=== PATIENT | female | born 1945 | race Caucasian/White ===

== ENCOUNTER 2022-01-20 11:45 | Outpatient (CLI) | payer MEDICARE, OTHER ==
[2022-01-20 15:07] LABS: BASOPHILS # (AUTO) 0.1 10^3/uL (0.0-0.1); BASOPHILS % (AUTO) 0.8 %; EOSINOPHILS # (AUTO) 0.3 10^3/uL (0.0-0.7); HCT - HEMATOCRIT 40.5 % (37.0-47.0); HGB - HEMOGLOBIN 13.6 g/dL (12.0-16.0); LYMPHOCYTES # (AUTO) 1.9 10^3/uL (1.5-3.5); LYMPHOCYTES % (AUTO) 30.8 %; MEAN CORPUSCULAR HEMOGLOBIN 30.4 pg (27.0-31.0); MEAN CORPUSCULAR HGB CONC 33.6 g/dL (32.0-36.0); MEAN CORPUSCULAR VOLUME 90.4 fL (81.0-99.0); MEAN PLATELET VOLUME 10.5 fL (7.9-10.8); MONOCYTES # (AUTO) 0.5 10^3/uL (0.0-1.0); MONOCYTES % (AUTO) 8.6 %; NEUTROPHILS # (AUTO) 3.5 10^3/uL (1.5-6.6); NEUTROPHILS % (AUTO) 55.5 %; PLT - PLATELET COUNT 253 10^3/uL (130-450); RED BLOOD COUNT 4.48 10^6/uL (4.20-5.40); WHITE BLOOD COUNT 6.3 x10^3/uL (4.8-10.8)
[2022-01-20 15:24] LABS: ALBUMIN 4.1 g/dL (3.2-5.5); ALBUMIN/GLOBULIN RATIO 1.3 (1.0-2.2); ALKALINE PHOSPHATASE 55 IU/L (42-121); ALT ALANINE AMINOTRANSFERASE 26 IU/L (10-60); AST ASPARTATE AMINOTRANSFERASE 28 IU/L (10-42); BUN - BLOOD UREA NITROGEN 16 mg/dL (6-20); CALCIUM 9.1 mg/dL (8.5-10.3); CARBON DIOXIDE - CO2 26 mmol/L (21-32); CHLORIDE 96 mmol/L (101-111); CHOL/HDL RATIO 2.7 (<4.4); CHOLESTEROL 192 mg/dL; CREATININE 0.6 mg/dL (0.4-1.0); GFR - MDRD 97 (>89); GLUCOSE 110 mg/dL (70-100); HDL CHOLESTEROL 70 mg/dL; LDL CHOLESTEROL,CALCULATED 103 mg/dL; LDL/HDL RATIO 1.5 (<4.4); POTASSIUM 3.4 mmol/L (3.5-5.0); SODIUM 131 mmol/L (135-145); TOTAL PROTEIN 7.3 g/dL (6.7-8.2); TRIGLYCERIDES 93 mg/dL; VLDL CHOLESTEROL 19 mg/dL
[2022-01-20 21:15] LABS: ESTIMATED AVERAGE GLUCOSE 111 mg/dL (70-100); HEMOGLOBIN A1c% 5.5 % (4.27-6.07)
== END 2022-01-20 11:46 | disposition home or self-care (01) ==
LOC: LAB.S 11:45
PROVIDERS: ATTEND Internal Medicine
DX: Z00.00 Encounter for general adult medical examination without abnormal findings (principal); E03.9 Hypothyroidism, unspecified; I10 Essential (primary) hypertension; R73.03 Prediabetes
CPT/HCPCS: 36415; 80053; 80061; 83036; 83721; 84443; 85025

== ENCOUNTER 2022-06-17 21:48 | Emergency (ER) | payer MEDICARE, OTHER ==
[2022-06-17 21:58] VITALS: BP 112/69
--- NOTE | 2022-06-17 22:39 | XRAY Report ---
PROCEDURE: Shoulder 3 View RT INDICATIONS: GLF TECHNIQUE: 4 views of the shoulder were acquired. COMPARISON: None. FINDINGS: Bones: No fractures or dislocations. No suspicious bony lesions. Visualized ribs appear intact. Soft tissues: No suspicious soft tissue calcifications. IMPRESSION: Mild degenerative change at the AC joint, no trauma found. Reviewed by: Stephen Ramirez MD on 06/17/2022 10:[address] [facility] Approved by: Stephen Ramirez MD on 06/17/2022 10:[address] [facility] Station ID: [id number]
--- NOTE | 2022-06-18 02:06 | ED Physician Documentation ---
PD HPI UPPER EXT INJURY - Stated complaint Stated Complaint: GLF, SHOULDER PX - Chief complaint Chief Complaint: Ext Problem - History obtained from History obtained from: Patient - History of Present Illness Location: Right, Shoulder Type of injury: Fall Where injury occurred: Home Timing - onset: Enter time (21:00) Timing - details: Abrupt onset Improved by: Rest Worsened by: Moving, Palpating Associated symptoms: No: Weakness, Numbness Contributing factors: No: Anticoagulated Recently seen: Not recently seen - Additonal information Additional information: patient fell at home at approximately 9PM tonight. She says she thinks she lost her balance as the cause of the fall . She fell onto her right side with sudden onset right shoulder pain that has been constant and steadily worse since falling. The pain is distinctly worse with movement. She denies other injury. Denies head injury, denies LOC, denies neck pain. She is right hand dominant. HPI from patient. Review of Systems Musculoskeletal: reports: Joint pain. 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 HEENT: Tonsil/Adenoidectomy - Present Medications Home Medications: Ambulatory Orders Medication Instructions Recorded Confirmed Amlodipine Besylate 10 mg PO DAILY 04/26/16 04/27/16 Amoxicillin/Potassium Clav [Amox 1 each PO BID 04/26/16 04/27/16 Tr-K Clv 875-125 mg Tab] Fluticasone [Flonase] 1 sprays LIZZETTE DAILY 04/26/16 04/26/16 Levothyroxine [Synthroid] 75 mcg PO QDAC 04/26/16 04/27/16 Omeprazole 20 mg PO ONCE PRN 04/26/16 04/27/16 Pseudoephedrine [Sudafed] 30 mg PO ONCE PRN 04/26/16 04/26/16 Spironolact/Hydrochlorothiazid 1 each PO DAILY 04/26/16 04/27/16 [Aldactazide 25-25 Tablet] HYDROcod/ACETAM 5/325 [Wallagrass 5/325] 1 - 2 tablet PO Q6H PRN #14 tablet 06/18/22 - Allergies Allergies/Adverse Reactions: Allergies Allergy/AdvReac Type Severity Reaction Status Date / Time lisinopril Allergy Edema Verified 06/17/22 21:58 PD ED PE NORMAL - Vitals Vital signs reviewed: Yes - General General: Alert and oriented X 3, No acute distress, Well developed/nourished - Derm Derm: Normal color, Warm and dry - Neuro Neuro: Alert and oriented X 3 PD ED PE EXPANDED - Extremities Extremities: Limited ROM, Right shoulder. No: Deformity, Tenderness, Swelling, Bruising Results - Vitals Vitals: Oxygen O2 Source Room air - Rads (name of study) right shoulder xrays Radiology: Prelim report reviewed, EMP read indepedently, See rad report PD Medical Decision Making - ED course Complexity details: reviewed results, re-evaluated patient, considered differential, d/w patient ED course: no abnormality on right shoulder xrays aside from mild DJD. Discussed results of xrays with patient and that suspected diagnosis at this point is right shoulder sprain. She is placed in a sling for comfort, return precautions discussed. She is given take-home pack of vicodin and rx for vicodin is provided. Departure - Departure Disposition: 01 Home, Self Care Clinical Impression: Shoulder sprain Qualifiers: Encounter type: initial encounter Shoulder sprain type: unspecified sprain Laterality: right Qualified Code(s): S43.401A - Unspecified sprain of right shoulder joint, initial encounter Condition: Good Instructions: ED Sprain Shoulder Prescriptions: HYDROcod/ACETAM 5/325 [Wallagrass 5/325] 1 - 2 tablet PO Q6H PRN #14 tablet PRN Reason: Pain Comments: The x-ray is of your shoulder do not show any acute injury. There is mild arthritic change, but no evidence of dislocation or fracture (break). Use the sling for 2 to 3 days during the day, and you can then continue to use it if it is helping with the discomfort. A prescription for Vicodin (narcotic pain medication) has been electronically submitted to [email or web address] pharmacy in [place]. I am prescribing a short course of narcotic pain medication for you. These are potentially dangerous and addictive medications that should be used carefully. These medications may constipate you. Take an [id number] stool softener (docusate) twice daily with plenty of water while taking these medications. If you go 24 hours without a bowel movement, take ykbx-gwc-hikntic miralax, per package instructions. Do not drink or drive while taking these medications. If you received narcotic or sedating medications while in the emergency department, do not drive for 24 hours. Store this medication in a safe, secure place and out of reach of children. It is a violation of federal law to give or sell this medication to another person or to use in a manner other than prescribed. The ED will not refill narcotic prescriptions, including prescriptions lost or stolen. To dispose of unwanted medications: 1. [facility] at [address] in [place] has a medication drop box. They accept prescription medications (in pill form) Monday through Monday 9:00 a.m. to 5:00 p.m. 2. The [facility] accepts prescription medications (in pill form only) for disposal year round. Call for more information. 3. Contact the [facility] for the next [facility] sponsored prescription drug collection event. , [phone], or [phone]; Discharge Date/Time: 06/18/22 02:30
[2022-06-18] MEDS ORDERED: HYDROcod/ACET 5/325 Prepack 4 PO STA (02:10)
== END 2022-06-18 02:30 | disposition home or self-care (01) ==
LOC: ED 21:48
DX: S43.401A Unspecified sprain of right shoulder joint, initial encounter (principal); W18.30XA Fall on same level, unspecified, initial encounter; Y92.009 Unspecified place in unspecified non-institutional (private) residence as the place of occurrence of the external cause; I10 Essential (primary) hypertension; M19.011 Primary osteoarthritis, right shoulder
CPT/HCPCS: 99282; 99283

== ENCOUNTER 2022-07-27 13:59 | Outpatient (CLI) | payer MEDICARE, OTHER ==
[2022-07-27 20:04] LABS: ALBUMIN/GLOBULIN RATIO 1.3 (1.0-2.2); BILIRUBIN,TOTAL 0.8 mg/dL (0.2-1.0); CALCIUM 9.4 mg/dL (8.5-10.3); CREATININE 0.7 mg/dL (0.4-1.0); POTASSIUM 3.5 mmol/L (3.5-5.0); TOTAL PROTEIN 7.2 g/dL (6.7-8.2)
== END 2022-07-27 14:00 | disposition home or self-care (01) ==
LOC: LAB.S 13:59
PROVIDERS: ATTEND Orthopaedic Surgery
DX: Z01.818 Encounter for other preprocedural examination (principal)
CPT/HCPCS: 36415; 80053

== ENCOUNTER 2023-04-20 10:45 | Outpatient (CLI) | payer MEDICARE, OTHER ==
[2023-04-20 15:16] LABS: BASOPHILS # (AUTO) 0.1 10^3/uL (0.0-0.1); EOSINOPHILS # (AUTO) 0.2 10^3/uL (0.0-0.7); EOSINOPHILS % (AUTO) 3.8 %; HCT - HEMATOCRIT 40.4 % (37.0-47.0); HGB - HEMOGLOBIN 13.3 g/dL (12.0-16.0); LYMPHOCYTES # (AUTO) 1.7 10^3/uL (1.5-3.5); LYMPHOCYTES % (AUTO) 29.6 %; MEAN CORPUSCULAR HEMOGLOBIN 30.5 pg (27.0-31.0); MEAN CORPUSCULAR HGB CONC 32.9 g/dL (32.0-36.0); MEAN CORPUSCULAR VOLUME 92.7 fL (81.0-99.0); MEAN PLATELET VOLUME 10.4 fL (7.9-10.8); MONOCYTES # (AUTO) 0.6 10^3/uL (0.0-1.0); MONOCYTES % (AUTO) 9.6 %; NEUTROPHILS # (AUTO) 3.3 10^3/uL (1.5-6.6); NEUTROPHILS % (AUTO) 55.7 %; PLT - PLATELET COUNT 240 10^3/uL (130-450); RED BLOOD COUNT 4.36 10^6/uL (4.20-5.40); RED CELL DISTRIBUTION WIDTH 13.4 % (12.0-15.0); WHITE BLOOD COUNT 5.8 x10^3/uL (4.8-10.8)
[2023-04-20 15:44] LABS: ALBUMIN 4.2 g/dL (3.2-5.5); ALBUMIN/GLOBULIN RATIO 1.4 (1.0-2.2); ALKALINE PHOSPHATASE 62 IU/L (42-121); ALT ALANINE AMINOTRANSFERASE 16 IU/L (10-60); AST ASPARTATE AMINOTRANSFERASE 20 IU/L (10-42); BILIRUBIN,TOTAL 0.7 mg/dL (0.2-1.0); BUN - BLOOD UREA NITROGEN 15 mg/dL (6-20); CALCIUM 9.3 mg/dL (8.5-10.3); CARBON DIOXIDE - CO2 31 mmol/L (21-32); CHLORIDE 100 mmol/L (101-111); CHOL/HDL RATIO 2.7 (<4.4); CHOLESTEROL 218 mg/dL; CREATININE 0.8 mg/dL (0.6-1.3); GFR - MDRD 70 (>89); GLUCOSE 94 mg/dL (74-104); HDL CHOLESTEROL 81 mg/dL; LDL CHOLESTEROL,CALCULATED 106 mg/dL; LDL/HDL RATIO 1.3 (<4.4); POTASSIUM 3.9 mmol/L (3.5-4.5); SODIUM 137 mmol/L (135-145); TOTAL PROTEIN 7.1 g/dL (6.4-8.9); TRIGLYCERIDES 154 mg/dL (48-352); VLDL CHOLESTEROL 31 mg/dL
[2023-04-20 15:54] LABS: THYROID STIMULATING HORMONE 1.48 uIU/mL (0.34-5.60)
== END 2023-04-20 10:46 | disposition home or self-care (01) ==
LOC: LAB.S 10:45
PROVIDERS: ATTEND Physician Assistant
DX: I48.91 Unspecified atrial fibrillation (principal); E78.2 Mixed hyperlipidemia; E03.9 Hypothyroidism, unspecified
CPT/HCPCS: 36415; 80053; 80061; 83721; 84443; 85025

== ENCOUNTER 2023-07-17 13:55 | Outpatient (CLI) | payer MEDICARE, OTHER ==
[2023-07-17 20:41] LABS: THYROID STIMULATING HORMONE 1.31 uIU/mL (0.34-5.60)
== END 2023-07-17 13:56 | disposition home or self-care (01) ==
LOC: LAB.S 13:55
PROVIDERS: ATTEND Nurse Practitioner Family
DX: E03.9 Hypothyroidism, unspecified (principal)
CPT/HCPCS: 36415; 84439; 84443

== ENCOUNTER 2024-02-06 19:24 | Outpatient (CLI) | payer MEDICARE, OTHER | END 2024-02-06 23:59 | disposition critical access hospital (66) | LOC: EMS 19:24 | DX: R10.9 Unspecified abdominal pain (principal); K59.00 Constipation, unspecified | CPT/HCPCS: A0425; A0427 ==

== ENCOUNTER 2024-02-06 19:53 | Emergency (ER) | payer MEDICARE, OTHER ==
[2024-02-06 20:08] VITALS: BP 132/79; O2SAT 99
[2024-02-06] MEDS ORDERED: iohexoL-300 100 ML VIAL ONE ×2 (20:22→20:23)
--- NOTE | 2024-02-06 20:23 | ED Physician Documentation ---
History of Present Illness - Stated complaint Stated Complaint: L ABD PX - Chief complaint Chief Complaint: Abd Pain - History obtained from History obtained from: Patient - Additonal information Additional information: The patient comes to the emergency department chief complaint of no bowel movement for a week after a lumbar fusion surgery and left-sided abdominal pain. She states that she was on pain meds prior to the surgery and had to be on laxatives but was able to have bowel movements. She states she had her surgery and was in the hospital for couple of days afterward during which time they gave her MiraLAX but she never had a bowel movement. The patient has been taking hydromorphone at home. She has also been taking MiraLAX and Pepto-Bismol, she states. She has tried drinking prune juice as well but to no avail. The patient states she has not been able to give herself an enema because of the limitations with her recent back surgery. She states she had fusions of L1-2 and L4-5. The patient states she has had occasional fevers up to 100.7 orally. She denies any other symptoms of illness. No nausea or vomiting. No dysuria. She does have a history of diverticulosis but never diverticulitis. No other complaints at this time. 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 HEENT: Tonsil/Adenoidectomy - Present Medications Home Medications: Ambulatory Orders Medication Instructions Recorded Confirmed Amlodipine Besylate 10 mg PO DAILY 04/26/16 04/27/16 Amoxicillin/Potassium Clav [Amox 1 each PO BID 04/26/16 04/27/16 Tr-K Clv 875-125 mg Tab] Fluticasone [Flonase] 1 sprays LIZZETTE DAILY 04/26/16 04/26/16 Levothyroxine [Synthroid] 75 mcg PO QDAC 04/26/16 04/27/16 Omeprazole 20 mg PO ONCE PRN 04/26/16 04/27/16 Pseudoephedrine [Sudafed] 30 mg PO ONCE PRN 04/26/16 04/26/16 Spironolact/Hydrochlorothiazid 1 each PO DAILY 04/26/16 04/27/16 [Aldactazide 25-25 Tablet] HYDROcod/ACETAM 5/325 [[place] 5/325] 1 - 2 tablet PO Q6H PRN #14 tablet 06/18/22 Peg 3350/Na Sulf,Bicarb,Cl/KCl 4,000 ml PO ONCE 1 Days #1 each 02/07/24 [Golytely] levoFLOXacin [Levaquin] 500 mg PO QD #10 tablet 02/07/24 metroNIDAZOLE [Flagyl] 500 mg PO BID 10 Days #20 tablet 02/07/24 - Allergies Allergies/Adverse Reactions: Allergies Allergy/AdvReac Type Severity Reaction Status Date / Time lisinopril Allergy Edema Verified 02/06/24 19:57 - Social History Does the pt smoke?: No Smoking Status: Never smoker Does the pt drink ETOH?: No Does the pt have substance abuse?: No - Immunizations Immunizations are current?: Yes - POLST Patient has POLST: No PD ED PE NORMAL - Vitals Vital signs reviewed: Yes - General General: Alert and oriented X 3, No acute distress, Well developed/nourished, Other (Patient appears occasionally clutches her left abdomen and moans in pain but otherwise is in no distress.) - HEENT HEENT: Atraumatic, EOMI, Moist mucous membranes - Neck Neck: Supple, no meningeal sign - Cardiac Cardiac: RRR, No murmur - Respiratory Respiratory: No respiratory distress, Clear bilaterally - Abdomen Abdomen: Soft, Non distended, Other (Moderate left abdominal tenderness in upper and lower quadrants, no rebound or guarding.) - Rectal Rectal: Other (Normal external exam. Empty rectum on digital rectal exam. No mass. No blood. 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, Normal speech, Other (Alert, grossly intact.) - Psych Psych: Normal mood, Normal affect Results - Vitals Vitals: Vital Signs - 24 hr 02/06/24 19:57 Temperature 36.9 C Heart Rate 85 Respiratory 16 Rate Blood Pressure 132/79 H O2 Saturation 99 Oxygen O2 Source Room air - Labs Labs: Laboratory Tests 02/06/24 02/06/24 20:30 20:30 WBC 9.6 RBC 3.50 L Hgb 10.5 L Hct 32.1 L MCV 91.7 MCH 30.0 MCHC 32.7 RDW 12.8 Plt Count 304 MPV 9.4 Neut # (Auto) 6.8 H Lymph # (Auto) 1.5 K[place]haw # (Auto) 1.0 Eos # (Auto) 0.3 Baso # (Auto) 0.1 Absolute Nucleated RBC 0.00 Nucleated RBC % 0.0 Sodium 135 Potassium 3.5 Chloride 96 L Carbon Dioxide 29 Anion Gap 10.0 BUN 10 Creatinine 0.8 Estimated GFR (MDRD) 69 L Glucose 112 H Calcium 9.2 Total Bilirubin 0.4 AST 19 ALT 18 Alkaline Phosphatase 75 Total Protein 6.7 Albumin 3.4 Globulin 3.3 Albumin/Globulin Ratio 1.0 Lipase 18 PD Medical Decision Making - ED course Complexity details: reviewed results, re-evaluated patient, considered differential, d/w patient ED course: I suspected postoperative constipation with likely some impaction in the upper rectum and Descending colon, but unfortunately, there was no impacted stool in the rectum to disimpact. The patient did have a history of diverticuli and I did feel that with the fever she was reporting as well as left-sided abdominal pain, that this should be evaluated as part of the differential. The patient was given IV fluids and I ordered a fleets mineral oil enema for her. She was worked up with labs, urinalysis, and CT scan of the abdomen and pelvis. CT showed a large stool burden in the colon with some wall thickening, but no obvious diverticulitis. No perforation noted. There is no evidence of obstruction. The radiologist said that even though there is no obvious evidence of diverticulitis, it could not be ruled out with the wall thickening, and so I did start the patient on antibiotics. She reported the only "brown water" came out after her enema. She was continuing to have some cramps and I did give her a bottle of magnesium citrate. The patient stated she would really like pain medication in the ED and I did discuss with her that this would contribute all the more to the constipation. The patient stated she would still like to try something for pain, so gave her a dose of Dilaudid. I have discussed with the patient and her that at this point in time, there is no evidence of an emergent condition and she will need to give the laxative time to work. I have prescribed GoLytely for her and this can be started in the morning if she does not have a bowel movement. We have discussed the effect of the narcotics as a general anesthesia on her bowels and that this is most likely precipitated this episode of constipation. However, I am confident that the patient will be able to move her bowels on her own. I have advised her to take enemas a couple of times a day to help get things moving from below as well. We have discussed the usual indications for return. Departure - Departure Disposition: 01 Home, Self Care Clinical Impression: Constipation Qualifiers: Constipation type: drug induced constipation Qualified Code(s): K59.03 - Drug induced constipation Abdominal pain Qualifiers: Abdominal location: unspecified location Qualified Code(s): R10.9 - Unspecified abdominal pain Condition: Stable Instructions: ED Constipation Prescriptions: metroNIDAZOLE [Flagyl] 500 mg PO BID 10 Days #20 tablet Peg 3350/Na Sulf,Bicarb,Cl/KCl [Golytely] 4,000 ml PO ONCE 1 Days #1 each levoFLOXacin [Levaquin] 500 mg PO QD #10 tablet Comments: Your laboratory studies look good. Your CT scan shows quite a bit of stool in your descending colon on the left, and this is most likely the cause of your discomfort. Unfortunately, being chronically on pain meds and then going under general anesthesia can cause significant constipation, and this can take some time to get turned around. There is no evidence of obstruction on your CT scan, and you are not displaying any signs of this symptomatically either. The waves of pain indicate that your intestines are working and that they are working on moving the stool forward. We have given you an enema here in the emergency department and it is important that you continue to do enemas at home. Please do them a couple times a day until you are able to have bowel movements. We have also given you magnesium citrate which is a fairly potent liquid laxative, and generally takes effect over 8 to 12 hours. I have also prescribed GoLytely for you which is the colon prep that is used for colonoscopies. Between this and the enemas, I would expect you to be able to have a bowel movement in the next day or two. You may continue taking your pain medications as needed for the pain. If you begin vomiting, and you continue to have abdominal pain and no bowel movement, then you should return to the emergency department. The prescriptions for your medications have been electronically transmitted to the [facility] pharmacy in [place]. Please pick them up in the morning and take as directed. Forms: PCP List Discharge Date/Time: 02/07/24 00:19
[2024-02-06] MEDS: SODIUM CHLORIDE 0.9% 1,000 ML IV STA (20:35)
[2024-02-06] MEDS: MAGNESIUM CITRATE 296 ML BOTTLE PO STA (20:36)
[2024-02-06 20:40] LABS: BASOPHILS # (AUTO) 0.1 10^3/uL (0.0-0.1); BASOPHILS % (AUTO) 0.5 %; EOSINOPHILS # (AUTO) 0.3 10^3/uL (0.0-0.7); EOSINOPHILS % (AUTO) 2.8 %; HCT - HEMATOCRIT 32.1 % (37.0-47.0); HGB - HEMOGLOBIN 10.5 g/dL (12.0-16.0); LYMPHOCYTES # (AUTO) 1.5 10^3/uL (1.5-3.5); LYMPHOCYTES % (AUTO) 15.6 %; MEAN CORPUSCULAR HGB CONC 32.7 g/dL (32.0-36.0); MEAN CORPUSCULAR VOLUME 91.7 fL (81.0-99.0); MEAN PLATELET VOLUME 9.4 fL (7.9-10.8); MONOCYTES % (AUTO) 10.4 %; NEUTROPHILS # (AUTO) 6.8 10^3/uL (1.5-6.6); NEUTROPHILS % (AUTO) 70.1 %; PLT - PLATELET COUNT 304 10^3/uL (130-450); RED CELL DISTRIBUTION WIDTH 12.8 % (12.0-15.0); WHITE BLOOD COUNT 9.6 x10^3/uL (4.8-10.8)
[2024-02-06 20:49] LABS: ALBUMIN 3.4 g/dL (3.2-5.5); BILIRUBIN,TOTAL 0.4 mg/dL (0.2-1.0); CALCIUM 9.2 mg/dL (8.5-10.3); CREATININE 0.8 mg/dL (0.6-1.3); POTASSIUM 3.5 mmol/L (3.5-4.5); TOTAL PROTEIN 6.7 g/dL (6.4-8.9)
[2024-02-06] MEDS: MINERAL OIL ENEMA 133 ML BOTTLE RC STA (20:53)
[2024-02-06] MEDS: iohexoL-300 100 ML VIAL IVP ONE (21:39)
--- NOTE | 2024-02-06 21:48 | CT Report ---
PROCEDURE: Abdomen/Pelvis W INDICATIONS: L abd pain post-op CONTRAST: Omni 300, 100mls TECHNIQUE: After the administration of intravenous contrast, a CT scan of the abdomen and pelvis was performed. Images were recorded and evaluated at appropriate window settings. Reformats: coronal and sagittal. F or radiation dose reduction, the following was used: automated exposure control, adjustment of mA and /or kV according to patient size. COMPARISON: None. FINDINGS: Image quality: Diagnostic. Lower chest: Small hiatal hernia. Liver: No solid mass. Gallbladder: The gallbladder is distended, probably due to a fasting state. No radiopaque stones. Biliary tree: No intrahepatic or extrahepatic dilation, accounting for age. Spleen: No splenomegaly. Pancreas: No pancreatic ductal dilation. Adrenals: No adrenal nodule. Kidneys and ureters: No hydronephrosis. No renal cystic lesion which requires follow up. No solid mas s. Stomach, bowel and peritoneum: Large colonic stool load. Focal wall thickening of the sigmoid colon, with very mild pericolic fat stranding. Colonic diverticula are present. No pathologic free fluid. Lymph nodes: No central or retroperitoneal adenopathy. Vessels: No infrarenal aortic aneurysm. Patent portal vein. PELVIS Reproductive organs: Unremarkable. Bladder: No abnormal wall thickening, accounting for underdistention. Pelvic lymph nodes: No pelvic adenopathy by size criteria. Bones: No aggressive osseous abnormality. Surgical fusion of L2-L5. Left hip arthroplasty. Other: No significant ventral or inguinal hernia. IMPRESSION: Large colonic stool load. Focal wall thickening of the sigmoid colon in the presence of diverticula m ay indicate mild acute diverticulitis, less likely malignancy or colitis. Consider correlation with c olonoscopy, if not up-to-date. Distended gallbladder, probably due to a fasting state. No radiopaque stones. Reviewed by: Faustino Bright MD on 02/06/2024 9:47 PM PDT Approved by: Faustino Bright MD on 02/06/2024 9:47 PM PDT Station ID: [id number]
[2024-02-06] MEDS: levoFLOXacin 250 MG TABLET PO STA (23:14)
[2024-02-06] MEDS: metroNIDAZOLE 250 MG TABLET PO STA (23:14)
[2024-02-06] MEDS: HYDROmorphone 1 MG/ML CARPUJECT IVP STA (23:41)
== END 2024-02-07 00:19 | disposition home or self-care (01) ==
LOC: EDUNIT# → ED 19:53
DX: K59.00 Constipation, unspecified (principal); R10.9 Unspecified abdominal pain; I10 Essential (primary) hypertension; E03.9 Hypothyroidism, unspecified; K21.9 Gastro-esophageal reflux disease without esophagitis; Z79.899 Other long term (current) drug therapy
CPT/HCPCS: 36415; 74177; 80053; 83690; 85025; 96374; 99284; A9270; J1170; Q9967